=== PATIENT | female | born 1985 | race Caucasian/White ===

== ENCOUNTER → 2016-10-27 | Outpatient (CLI) | payer OTHER ==
[~2016-10-27] MED LIST: IBUP-1114 PO; OXYC1TAB23 PO
[2016-10-27 13:59] LABS: FREE T4 0.88 NG/DL (0.76-1.46)
== END ==
LOC: M SMT 10:01
PROVIDERS: ATTEND Family Medicine
DX: Z13.29 Encounter for screening for other suspected endocrine disorder (principal)

== ENCOUNTER 2016-11-23 22:57 | Emergency (ER) | payer OTHER ==
[2016-11-24] MEDS ORDERED: MORPHINE 4 MG/ML 1ML SYRINGE As Ordered ONE (03:01)
[2016-11-24] MEDS ORDERED: ONDANSETRON 4MG/2ML VIAL (J2405) As Ordered ONE (03:01)
[2016-11-24 03:39] LABS: BASO % 0.4 % (0.0-1.0); EOS # 0.2 K/mm3 (0.0-0.50); EOS % 1.5 % (0.0-3.0); LARGE UNSTAINED CELL # 0.3 K/mm3 (0.0-0.4); LARGE UNSTAINED CELL % 3.1 % (0.0-4.0); LYMPH # 2.6 K/mm3 (1.5-4.5); LYMPH % 23.6 % (24.0-44.0); MEAN CORPUSCULAR HEMOGLOBIN 29.8 pg (27.0-33.0); MEAN CORPUSCULAR HGB CONC 33.5 g/dl (32.0-36.5); MEAN CORPUSCULAR VOLUME 88.8 fl (80.0-96.0); MONO # 0.5 K/mm3 (0.0-0.8); MONO % 4.4 % (0.0-5.0); NEUTROPHILS # 7.3 K/mm3 (1.8-7.7); NEUTROPHILS % 66.9 % (36.0-66.0); PLATELET COUNT, AUTOMATED 435 k/mm3 (150-450); RED CELL DISTRIBUTION WIDTH 12.5 % (11.5-14.5); WHITE BLOOD COUNT 10.8 K/mm3 (4.0-10.0)
[2016-11-24 04:05] LABS: ALBUMIN 4.2 GM/DL (3.2-5.2); ALBUMIN/GLOBULIN RATIO 1.11 (1.00-1.93); ALKALINE PHOSPHATASE 113 U/L (45-117); ALT/SGPT 49 U/L (12-78); AMYLASE 55 U/L (25-115); ANION GAP 10 MEQ/L (8-16); AST/SGOT 24 U/L (15-37); BILIRUBIN,DIRECT < 0.1 MG/DL (0.0-0.2); BILIRUBIN,TOTAL 0.5 MG/DL (0.2-1.0); BLOOD UREA NITROGEN 20 MG/DL (7-18); CALCIUM LEVEL 8.9 MG/DL (8.5-10.1); CARBON DIOXIDE LEVEL 27 MEQ/L (21-32); CHLORIDE LEVEL 105 MEQ/L (98-107); CREATININE FOR GFR 0.62 MG/DL (0.55-1.02); GLOMERULAR FILTRATION RATE > 60.0 (>60); GLUCOSE, FASTING 97 MG/DL (70-105); POTASSIUM SERUM 3.9 MEQ/L (3.5-5.1); SODIUM LEVEL 142 MEQ/L (136-145)
--- NOTE | 2016-11-24 05:10 | REPUSA ---
CLINICAL HISTORY: Abdominal pain. TECHNIQUE: Multiple axial, sagittal and coronal CT images were obtained through the abdomen and pelvi s without administration of oral or IV contrast material. COMMENTS: The liver is mildly enlarged without mass or defect. There is no intra or extrahepatic biliary ductal dilatation. The spleen is normal. The gallbladder is surgically absent. The pancreas is of normal co ntour and attenuation characteristics. There is no evidence of adrenal mass. The kidneys are normal in size, shape and configuration. No renal or ureteral calculi are identified. There is no hydroureter or hydronephrosis. There is no evidence for appendicitis. There is no bowel wall thickening. No evidence for small or la rge bowel obstruction. There is no evidence of abdominal ascites or lymphadenopathy. There is no evidence of intrinsic or extrinsic bladder mass. There is no pelvic ascites or lymphadeno alyce. The bowels. Mildly thickened bladder. Images of the lung bases show no evidence of pleural or parenchymal mass. There are no pleural effusi ons. The bony structures are free of lytic or blastic lesions. Multilevel degenerative changes are seen in volving the thoracolumbar spine. Scattered calcifications are seen involving the aorta and major branches compatible with atherosclero sis. IMPRESSION: Mildly thickened bladder. Underdistention versus mild cystitis. Fluid-filled bowels. Probably mild ileus. No urolithiasis or hydronephrosis. Thank you for your kind referral of this patient.
[2016-11-24] MEDS ORDERED: KETOROLAC 30 MG/ML VIAL (J1885) As Ordered ONE (05:56)
--- NOTE | 2016-11-24 06:45 | EDDOCDS ---
Nurse's Notes [facility] Name: Carol Calderon Age: 31 yrs Sex: Female : 1985 Arrival Date: 11/23/2016 Time: 22:57 Bed 15 Private MD: Lauren Diagnosis: Urinary tract infection, site not specified Presentation: 11/23 23:15 Presenting complaint: Patient states: Abdominal pain around 7pm and gradually getting jo3 worse. Epigastric pain which radiates to RUQ. Pt does not have gall bladder. N/V also noted. Risk factors: the patient reports no vaginal bleeding. Adult Sepsis Screening: The patient does not have new or worsening altered mentation. Patient's respiratory rate is less than 22. Systolic blood pressure is greater than 100. Patient has a qSOFA score of 0- Negative Sepsis Screen. Suicide/Homicide risk assessment- the patient denies having any suicidal and/or homicidal ideations and does not present with any other emotional, behavioral or mental health complaints. Status: The patient is a dependent. Transition of care: patient was not received from another setting of care. 23:15 Acuity: DOREEN Level 3 jo3 23:15 Method Of Arrival: Walkin/Carried/Asstd jo3 Triage Assessment: 23:20 General: Appears uncomfortable, Behavior is appropriate for age, cooperative. Pain: jo3 Pain currently is 9 out of 10 on a pain scale. HIV screening NA for this visit Offered previously. The patient is triaged at the bedside. See Assessment in Nurses Notes section of ED record. Neurological: Level of Consciousness is awake, alert, Oriented to person, place, time. Respiratory: No deficits noted. Airway is patent Respiratory effort is even, unlabored. Derm: Skin is pink, warm & dry. ROLFER: 23:21 LMP N/A - jo3 Historical: - Allergies: Amoxicillin; Azithromycin; - Home Meds: 1. Ranitidine Oral 2. Vitamin D3 oral oral 3. nexplanon placed this morning 4. 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 No barriers to communication noted, The patient speaks fluent French, Speaks appropriately for age. - Family history: Not pertinent. - : The pt / caregiver states he / she is not on anticoagulants. Home medication list is obtained from the patient. - Exposure Risk Screening:: None identified. Screenin/17 03:42 Screening information is obtained from the patient. Fall risk: No risks identified. cf2 Assistance ADL's: requires no assistance with activities of daily living. Abuse/DV Screen: The patient / caregiver reports he/she is: not in a situation that causes fear, pain or injury. Nutritional screening: No deficits noted. Advance Directives: Further advance directive information is declined. home support is adequate. Assessment: 01:10 Adult Sepsis Screening: The patient does not have new or worsening altered mentation. lf1 Patient's respiratory rate is less than 22. Systolic blood pressure is greater than 100. Patient has a qSOFA score of 0- Negative Sepsis Screen. General: Appears uncomfortable, Behavior is cooperative. Pain: Location: suprapubic area and right lower quadrant Pain currently is 8 out of 10 on a pain scale. Neurological: Level of Consciousness is awake, alert. Respiratory: Respiratory effort is even, unlabored. GI: Reports lower abdominal pain, nausea. Derm: Skin is normal. 03:42 GI: Abdomen is flat, non- distended Bowel sounds present X 4 quads. Abd is soft Abd is cf2 tender to palpation in epigastric area and right upper quadrant. 06:18 Reassessment: Patient appears in no apparent distress at this time. Patient denies pain cf2 at this time. Patient states feeling better. Patient states symptoms have improved. Vital Signs: 11/23 23:23 BP 152 / 95; Pulse 123; Resp 18; Temp 97.9(TE); Pulse Ox 98% on R/A; jo3 11/24 01:10 BP 139 / 87; Pulse 120; Resp 20; Temp 98.0(TE); Pulse Ox 99% on R/A; Pain 8/10; lf1 06:41 BP 132 / 78; Pulse 106; Resp 16; Temp 98.0; Pulse Ox 99% on R/A; Pain 0/10; cf2 Vitals: 11/23 23:20 Log In Time: November 22, 2016 at 22:57. jo3 ED Course: 22:59 Patient visited by Bart Beasley RegRadha pm4 22:59 Lauren is Private Physician. pm4 22:59 Patient moved to Waiting pm4 23:15 Patient moved to Pre RCE jo3 23:17 Triage Initiated jo3 23:23 Patient visited by Romi Rea RN. jo3 02 01:08 Patient moved to Waiting sls1 01:11 Patient visited by Gina Mckoy,PUNEET. lf1 02:31 Patient moved to 15 lf1 02:37 Stefan Hernandez DO is Attending Physician. cs11 02:37 Patient visited by Stefan Hernandez DO. cs11 02:37 Patient visited by Stefan Hernandez DO. cs11 02:44 Tamar Mcdaniel,PUNEET is Primary Nurse. cf2 02:44 Patient visited by Tamar Mcdaniel RN. cf2 02:57 [facility] Payment Agreement was scanned into [employer] and attached to record. hs2 02:59 Patient visited by Tamar Mcdaniel RN. cf2 03:36 Patient visited by Tamar Mcdaniel RN. cf2 03:37 CBC with Diff Sent. cf2 03:37 MED Profile Sent. cf2 03:37 Liver Profile Sent. cf2 03:37 Amylase Sent. cf2 03:37 Lipase Sent. cf2 03:37 Urinalysis Sent. cf2 03:37 Urine Culture Sent. cf2 03:42 Patient visited by Tamar Mcdaniel RN. cf2 03:42 The patient / caregiver is instructed regarding the plan of care and ED course. Patient cf2 has correct armband on for positive identification. Placed in gown. Bed in low position. Call light in reach. Side rails up X 1. Side rails up X2. Property :Personal belongings accompany Pt. Door closed. Noise minimized. Visitors limited. Lights dimmed. Moved to private room. Verbal reassurance given. Warm blanket given. Pillow given. Head of bed elevated. Diet: Patient is NPO. 03:42 Inserted saline lock: 20 gauge in right antecubital area and blood collected. The cf2 patient tolerated the procedure well. No procedures done that require assistance. 05:05 Patient visited by Tamar Mcdaniel RN. cf2 05:22 Patient visited by Tamar Mcdaniel RN. cf2 05:31 CT ABD & PELVIS: No Contrast Returned. EDMS 05:41 Patient visited by Tamar Mcdaniel RN. cf2 05:50 Lauren is Referral Physician. cs11 06:18 Patient visited by Tamar Mcdaniel RN. cf2 06:41 Patient visited by Tamar Mcdaniel RN. cf2 06:41 Discontinued lock. cf2 Administered Medications: Discontinued: NS 0.9% 1000 ml IV at bolus once Discontinued: Ciprofloxacin 400 mg IVPB at 200 mL/hr once over 60 mins 03:10 Drug: NS 0.9% 1000 ml [sodium chloride 0.9 % intravenous solution] Route: IV; Rate: cf2 bolus; Site: left antecubital; 03:10 Drug: morphine 4 mg [morphine 4 mg/mL intravenous cartridge (1 mL)] Route: IVP; Site: cf2 left antecubital; 05:42 Follow up: Response: Pain is decreased cf2 04:20 Drug: Ciprofloxacin 400 mg [ciprofloxacin 400 mg/200 mL in 5 % dextrose intravenous cf2 piggyback] Route: IVPB; Rate: 200 mL/hr; Infused Over: 60 mins; Site: left antecubital; 06:43 Follow up: Response: No significant change. cf2 05:45 Drug: ketorolac 30 mg [ketorolac 30 mg/mL (1 mL) injection solution (1 mL)] Route: IVP; cf2 Site: left antecubital; 06:17 Follow up: Response: No significant change. cf2 06:43 Follow up: Response: Pain is decreased cf2 Order Results: Lab Order: CBC with Diff; SPEC'M 11/24/16 03:32 Test: HEMATOCRIT; Value: 47.6; Range: 36.0-47.0; Abnormal: Above high normal; Units: %; Status: F Test: MEAN CORPUSCULAR VOLUME; Value: 88.8; Range: 80.0-96.0; Units: fl; Status: F Test: MEAN CORPUSCULAR HEMOGLOBIN; Value: 29.8; Range: 27.0-33.0; Units: pg; Status: F Test: MEAN CORPUSCULAR HGB CONC; Value: 33.5; Range: 32.0-36.5; Units: g/dl; Status: F Test: RED CELL DISTRIBUTION WIDTH; Value: 12.5; Range: 11.5-14.5; Units: %; Status: F Test: PLATELET COUNT, AUTOMATED; Value: 435; Range: 150-450; Units: k/mm3; Status: F Test: NEUTROPHILS %; Value: 66.9; Range: 36.0-66.0; Abnormal: Above high normal; Units: %; Status: F Test: LYMPH %; Value: 23.6; Range: 24.0-44.0; Abnormal: Below low normal; Units: %; Status: F Test: MONO %; Value: 4.4; Range: 0.0-5.0; Units: %; Status: F Test: EOS %; Value: 1.5; Range: 0.0-3.0; Units: %; Status: F Test: BASO %; Value: 0.4; Range: 0.0-1.0; Units: %; Status: F Test: LARGE UNSTAINED CELL %; Value: 3.1; Range: 0.0-4.0; Units: %; Status: F Test: NEUTROPHILS #; Value: 7.3; Range: 1.8-7.7; Units: K/mm3; Status: F Test: LYMPH #; Value: 2.6; Range: 1.5-4.5; Units: K/mm3; Status: F Test: MONO #; Value: 0.5; Range: 0.0-0.8; Units: K/mm3; Status: F Test: EOS #; Value: 0.2; Range: 0.0-0.50; Units: K/mm3; Status: F Test: BASO #; Value: 0.0; Range: 0.0-0.2; Units: K/mm3; Status: F Test: LARGE UNSTAINED CELL #; Value: 0.3; Range: 0.0-0.4; Units: K/mm3; Status: F Test: WHITE BLOOD COUNT; Value: 10.8; Range: 4.0-10.0; Abnormal: Above high normal; Units: K/mm3; Status: F Test: RED BLOOD COUNT; Value: 5.36; Range: 4.00-5.40; Units: M/mm3; Status: F Test: HEMOGLOBIN; Value: 16.0; Range: 12.0-16.0; Units: g/dl; Status: F Lab Order: MED Profile; SPEC'M 11/24/16 03:32 Test: GLUCOSE, FASTING; Value: 97; Range: 70-105; Units: MG/DL; Status: F Test: BLOOD UREA NITROGEN; Value: 20; Range: 7-18; Abnormal: Above high normal; Units: MG/DL; Status: F Test: CREATININE FOR GFR; Value: 0.62; Range: 0.55-1.02; Units: MG/DL; Status: F Test: GLOMERULAR FILTRATION RATE; Value: > 60.0; Range: >60; Status: F Test: SODIUM LEVEL; Value: 142; Range: 136-145; Units: MEQ/L; Status: F Test: POTASSIUM SERUM; Value: 3.9; Range: 3.5-5.1; Units: MEQ/L; Status: F Test: CHLORIDE LEVEL; Value: 105; Range: 98-107; Units: MEQ/L; Status: F Test: CARBON DIOXIDE LEVEL; Value: 27; Range: 21-32; Units: MEQ/L; Status: F Test: ANION GAP; Value: 10; Range: 8-16; Units: MEQ/L; Status: F Test: CALCIUM LEVEL; Value: 8.9; Range: 8.5-10.1; Units: MG/DL; Status: F Test Note: ; Units are mL/min/1.73 m2 Chronic Kidney Disease Staging per NKF: Stage I & II GFR >=60 Normal to Mildly Decreased Stage III GFR 30-59 Moderately Decreased Stage IV GFR 15-29 Severely Decreased Stage V GFR <15 Very Little GFR Left ESRD GFR <15 on AGRICULTURAL EXTENSION SPECIALIST Lab Order: Liver Profile; SPEC'M 11/24/16 03:32 Test: AST/SGOT; Value: 24; Range: 15-37; Units: U/L; Status: F Test: ALT/SGPT; Value: 49; Range: 12-78; Units: U/L; Status: F Test: ALKALINE PHOSPHATASE; Value: 113; Range: 45-117; Units: U/L; Status: F Test: BILIRUBIN,TOTAL; Value: 0.5; Range: 0.2-1.0; Units: MG/DL; Status: F Test: BILIRUBIN,DIRECT; Value: < 0.1; Range: 0.0-0.2; Units: MG/DL; Status: F Test: TOTAL PROTEIN; Value: 8.0; Range: 6.4-8.2; Units: GM/DL; Status: F Test: ALBUMIN; Value: 4.2; Range: 3.2-5.2; Units: GM/DL; Status: F Test: ALBUMIN/GLOBULIN RATIO; Value: 1.11; Range: 1.00-1.93; Status: F Lab Order: Amylase; [facility] 11/24/16 03:32 Test: AMYLASE; Value: 55; Range: 25-115; Units: U/L; Status: F Lab Order: Lipase; [facility] 11/24/16 03:32 Test: LIPASE; Value: 122; Range: 73-393; Units: U/L; Status: F Lab Order: Urinalysis; [facility] 11/24/16 03:32 Test: APPEARANCE, URINE; Value: CLOUDY; Range: CLEAR; Abnormal: Above high normal; Status: F Test: COLOR, URINE; Value: YELLOW; Range: YELLOW; Status: F Test: PH,URINE; Value: 5.0; Range: 5.0-9.0; Units: UNITS; Status: F Test: SPECIFIC GRAVITY URINE AUTO; Value: 1.030; Range: 1.002-1.035; Status: F Test: PROTEIN, URINE AUTO; Value: NEGATIVE; Range: NEGATIVE; Units: mg/dL; Status: F Test: GLUCOSE, URINE (UA) AUTO; Value: NEGATIVE; Range: NEGATIVE; Units: mg/dL; Status: F Test: KETONE, URINE AUTO; Value: TRACE; Range: NEGATIVE; Abnormal: Above high normal; Units: mg/dL; Status: F Test: UROBILINOGEN, URINE AUTO; Value: 0.2; Range: 0.0-2.0; Units: mg/dL; Status: F Test: BILIRUBIN, URINE AUTO; Value: NEGATIVE; Range: NEGATIVE; Status: F Test: NITRITE, URINE AUTO; Value: NEGATIVE; Range: NEGATIVE; Status: F Test: LEUKOCYTE ESTERASE, URINE AUTO; Value: 2+; Range: NEGATIVE; Abnormal: Above high normal; Status: F Test: BLOOD, URINE BLOOD; Value: NEGATIVE; Range: NEGATIVE; Status: F Test: WBC, URINE AUTO; Value: 15; Range: 0-3; Abnormal: Above high normal; Units: /HPF; Status: F Test: RBC, URINE AUTO; Value: 5; Range: 0-3; Abnormal: Above high normal; Units: /HPF; Status: F Test: BACTERIA, URINE AUTO; Value: 1+; Range: NEGATIVE; Abnormal: Above high normal; Status: F Test: SQUAMOUS EPITHELIAL CELL UR AU; Value: 25; Range: 0-6; Units: /HPF; Status: F Test: MUCUS, URINE; Value: SMALL; Range: NEGATIVE; Status: F Test: HYALINE CAST, URINE AUTO; Value: 0; Range: 0-1; Units: /LPF; Status: F Radiology Order: CT ABD & PELVIS: No Contrast Test: CT ABD & PELVIS: No Contrast REASON FOR EXAMINATION: Renal colic; ; CLINICAL HISTORY: Abdominal pain.; TECHNIQUE: Multiple axial, sagittal and coronal CT images were obtained through the abdomen and pelvi; s without administration of oral or IV contrast material.; COMMENTS:; The liver is mildly enlarged without mass or defect. There is no intra or extrahepatic biliary ductal; dilatation. The spleen is normal. The gallbladder is surgically absent. The pancreas is of normal co; ntour and attenuation characteristics. There is no evidence of adrenal mass.; The kidneys are normal in size, shape and configuration. No renal or ureteral calculi are identified.; There is no hydroureter or hydronephrosis.; There is no evidence for appendicitis. There is no bowel wall thickening. No evidence for small or la; rge bowel obstruction. There is no evidence of abdominal ascites or lymphadenopathy.; There is no evidence of intrinsic or extrinsic bladder mass. There is no pelvic ascites or lymphadeno; alyce. The bowels.; Mildly thickened bladder.; Images of the lung bases show no evidence of pleural or parenchymal mass. There are no pleural effusi; ons.; The bony structures are free of lytic or blastic lesions. Multilevel degenerative changes are seen in; volving the thoracolumbar spine.; Scattered calcifications are seen involving the aorta and major branches compatible with atherosclero; sis.; IMPRESSION:; Mildly thickened bladder. Underdistention versus mild cystitis.; Fluid-filled bowels. Probably mild ileus.; No urolithiasis or hydronephrosis.; Thank you for your kind referral of this patient.; ; Outcome: 05:51 Discharge ordered by Provider. cs11 06:18 CT Study completed. cf2 06:41 Discharge Assessment: Patient awake, alert and oriented x 3. No cognitive and/or cf2 functional deficits noted. Patient verbalized understanding of disposition instructions. Patient awake and alert. Oriented to person, place and time. patient administered narcotics - yes. Pt provided with safe discharge. The following High Risk Discharge criteria are identified: None. Discharged to home ambulatory, with significant other. Condition: good Condition: stable Condition: improved. Discharge instructions given to patient, Instructed on discharge instructions, follow up and referral plans. medication usage, Demonstrated understanding of instructions, medications, Prescriptions given X 1. 06:44 Patient left the ED. cf2 Signatures: Dispatcher [employer] EDMS Romi ReaRN RN miguel angel3 Gina MckoyRN RN lf1 Mary Bains RN RN sls1 Stefan Hernandez, DO DO cs11 Tamia Epps, Reg Reg hs2 Tamar Mcdaniel RN RN cf2 Bart Beasley, Reg Reg pm4 MTDD
--- NOTE | 2016-11-24 06:45 | EDDOCDS ---
Physician Documentation [facility] Name: Carol Calderon Age: 31 yrs Sex: Female : 1985 Arrival Date: 11/23/2016 Time: 22:57 Bed 15 Private MD: Lauren Disposition: 11/24/16 05:51 Discharged to Home/Self Care. Impression: Urinary tract infection, site not specified. - Condition is Stable. - Prescriptions for Cipro 500 mg Oral Tablet - take 1 tablet by ORAL route every 12 hours; 10 tablet. - Medication Reconciliation, Local Pharmacy Hours form. - Follow up: Lauren; When: Call to arrange an appointment; Reason: Recheck today's complaints. - Problem is new. - Symptoms have improved. Historical: - Allergies: Amoxicillin; Azithromycin; - Home Meds: 1. Ranitidine Oral 2. Vitamin D3 oral oral 3. nexplanon placed this morning 4. 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 No barriers to communication noted, The patient speaks fluent Chinese, Speaks appropriately for age. - Family history: Not pertinent. - : The pt / caregiver states he / she is not on anticoagulants. Home medication list is obtained from the patient. - Exposure Risk Screening:: None identified. 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 cs11 02:57 NS 0.9% 1000 ml IV at bolus once ordered. cs11 02:57 morphine 4 mg IVP once ordered. cs11 02:57 [facility] Payment Agreement was scanned into [employer] and attached to record. hs2 02:57 Financial registration complete. hs2 02:58 CBC with Diff Ordered. EDMS 02:58 MED Profile Ordered. EDMS 02:58 Liver Profile Ordered. EDMS 02:58 Amylase Ordered. EDMS 02:58 Lipase Ordered. EDMS 02:58 Urinalysis Ordered. EDMS 02:58 Urine Culture Ordered. EDMS 04:01 CBC with Diff Reviewed. cs11 04:01 Urinalysis Reviewed. cs11 04:03 Ciprofloxacin 400 mg IVPB at 200 mL/hr once over 60 mins ordered. cs11 04:04 CT ABD & PELVIS: No Contrast Ordered. EDMS 04:57 MED Profile Reviewed. cs11 04:57 Liver Profile Reviewed. cs11 04:57 Amylase Reviewed. cs11 04:57 Lipase Reviewed. cs11 05:41 ketorolac 30 mg IVP once ordered. cs11 05:45 CT ABD & PELVIS: No Contrast Reviewed. cs11 Administered Medications: Discontinued: NS 0.9% 1000 ml IV at bolus once Discontinued: Ciprofloxacin 400 mg IVPB at 200 mL/hr once over 60 mins 03:10 Drug: NS 0.9% 1000 ml [sodium chloride 0.9 % intravenous solution] Route: IV; Rate: cf2 bolus; Site: left antecubital; 03:10 Drug: morphine 4 mg [morphine 4 mg/mL intravenous cartridge (1 mL)] Route: IVP; Site: cf2 left antecubital; 05:42 Follow up: Response: Pain is decreased cf2 04:20 Drug: Ciprofloxacin 400 mg [ciprofloxacin 400 mg/200 mL in 5 % dextrose intravenous cf2 piggyback] Route: IVPB; Rate: 200 mL/hr; Infused Over: 60 mins; Site: left antecubital; 06:43 Follow up: Response: No significant change. cf2 05:45 Drug: ketorolac 30 mg [ketorolac 30 mg/mL (1 mL) injection solution (1 mL)] Route: IVP; cf2 Site: left antecubital; 06:17 Follow up: Response: No significant change. cf2 06:43 Follow up: Response: Pain is decreased cf2 Signatures: Dispatcher [employer] EDMS Romi Rea RN RN Stefan Martinez DO DO cs11 Tamia Epps, Reg Reg hs2 Tamar Mcdaniel,RN RN cf2 The chart was reviewed and I authenticate all verbal orders and agree with the evaluation and treatment provided.Attachments: 02:57 [facility] Payment Agreement hs2 MTDD
--- NOTE | 2016-11-26 07:45 | EDDOCDS ---
Physician Documentation [facility] Name: Carol Calderon Age: 31 yrs Sex: Female : 1985 Arrival Date: 11/23/2016 Time: 22:57 Bed 15 Private MD: Lauren Disposition: 11/24/16 05:51 Discharged to Home/Self Care. Impression: Urinary tract infection, site not specified. - Condition is Stable. - Prescriptions for Cipro 500 mg Oral Tablet - take 1 tablet by ORAL route every 12 hours; 10 tablet. - Medication Reconciliation, Local Pharmacy Hours form. - Follow up: Lauren; When: Call to arrange an appointment; Reason: Recheck today's complaints. - Problem is new. - Symptoms have improved. Historical: - Allergies: Amoxicillin; Azithromycin; - Home Meds: 1. Ranitidine Oral 2. Vitamin D3 oral oral 3. nexplanon placed this morning 4. 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 No barriers to communication noted, The patient speaks fluent Khmer, Speaks appropriately for age. - Family history: Not pertinent. - : The pt / caregiver states he / she is not on anticoagulants. Home medication list is obtained from the patient. - Exposure Risk Screening:: None identified. 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 cs11 02:57 NS 0.9% 1000 ml IV at bolus once ordered. cs11 02:57 morphine 4 mg IVP once ordered. cs11 02:57 [facility] Payment Agreement was scanned into [employer] and attached to record. hs2 02:57 Financial registration complete. hs2 02:58 CBC with Diff Ordered. EDMS 02:58 MED Profile Ordered. EDMS 02:58 Liver Profile Ordered. EDMS 02:58 Amylase Ordered. EDMS 02:58 Lipase Ordered. EDMS 02:58 Urinalysis Ordered. EDMS 02:58 Urine Culture Ordered. EDMS 04:01 CBC with Diff Reviewed. cs11 04:01 Urinalysis Reviewed. cs11 04:03 Ciprofloxacin 400 mg IVPB at 200 mL/hr once over 60 mins ordered. cs11 04:04 CT ABD & PELVIS: No Contrast Ordered. EDMS 04:57 MED Profile Reviewed. cs11 04:57 Liver Profile Reviewed. cs11 04:57 Amylase Reviewed. cs11 04:57 Lipase Reviewed. cs11 05:41 ketorolac 30 mg IVP once ordered. cs11 05:45 CT ABD & PELVIS: No Contrast Reviewed. cs11 10:24 T-Sheet-- Draft Copy was scanned into [employer] and attached to record. gb 11/25 08:54 Radiology Report was scanned into [employer] and attached to record. gb Administered Medications: Discontinued: NS 0.9% 1000 ml IV at bolus once Discontinued: Ciprofloxacin 400 mg IVPB at 200 mL/hr once over 60 mins 11/24 03:10 Drug: NS 0.9% 1000 ml [sodium chloride 0.9 % intravenous solution] Route: IV; Rate: cf2 bolus; Site: left antecubital; 03:10 Drug: morphine 4 mg [morphine 4 mg/mL intravenous cartridge (1 mL)] Route: IVP; Site: cf2 left antecubital; 05:42 Follow up: Response: Pain is decreased cf2 04:20 Drug: Ciprofloxacin 400 mg [ciprofloxacin 400 mg/200 mL in 5 % dextrose intravenous cf2 piggyback] Route: IVPB; Rate: 200 mL/hr; Infused Over: 60 mins; Site: left antecubital; 06:43 Follow up: Response: No significant change. cf2 05:45 Drug: ketorolac 30 mg [ketorolac 30 mg/mL (1 mL) injection solution (1 mL)] Route: IVP; cf2 Site: left antecubital; 06:17 Follow up: Response: No significant change. cf2 06:43 Follow up: Response: Pain is decreased cf2 Signatures: Dispatcher [employer] Mine Carranza, Reg Reg gb Romi Rea,RN RN jo3 Stefan Hernandez, DO cs11 Tamia Epps, Reg Reg hs2 Tamar Mcdaniel RN RN cf2 The chart was reviewed and I authenticate all verbal orders and agree with the evaluation and treatment provided.Attachments: 02:57 [facility] Payment Agreement hs2 10:24 T-Sheet-- Draft Copy gb Chart Complete MTDD
--- NOTE | 2016-11-26 07:45 | EDDOCDS ---
Nurse's Notes [facility] Name: Carol Calderon Age: 31 yrs Sex: Female : 1985 Arrival Date: 11/23/2016 Time: 22:57 Bed 15 Private MD: Lauren Diagnosis: Urinary tract infection, site not specified Presentation: 11/23 23:15 Presenting complaint: Patient states: Abdominal pain around 7pm and gradually getting jo3 worse. Epigastric pain which radiates to RUQ. Pt does not have gall bladder. N/V also noted. Risk factors: the patient reports no vaginal bleeding. Adult Sepsis Screening: The patient does not have new or worsening altered mentation. Patient's respiratory rate is less than 22. Systolic blood pressure is greater than 100. Patient has a qSOFA score of 0- Negative Sepsis Screen. Suicide/Homicide risk assessment- the patient denies having any suicidal and/or homicidal ideations and does not present with any other emotional, behavioral or mental health complaints. Status: The patient is a dependent. Transition of care: patient was not received from another setting of care. 23:15 Acuity: DOREEN Level 3 jo3 23:15 Method Of Arrival: Walkin/Carried/Asstd jo3 Triage Assessment: 23:20 General: Appears uncomfortable, Behavior is appropriate for age, cooperative. Pain: jo3 Pain currently is 9 out of 10 on a pain scale. HIV screening NA for this visit Offered previously. The patient is triaged at the bedside. See Assessment in Nurses Notes section of ED record. Neurological: Level of Consciousness is awake, alert, Oriented to person, place, time. Respiratory: No deficits noted. Airway is patent Respiratory effort is even, unlabored. Derm: Skin is pink, warm & dry. 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 Ranitidine Oral 2. Vitamin D3 oral oral 3. nexplanon placed this morning 4. 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 No barriers to communication noted, The patient speaks fluent Swedish, Speaks appropriately for age. - Family history: Not pertinent. - : The pt / caregiver states he / she is not on anticoagulants. Home medication list is obtained from the patient. - Exposure Risk Screening:: None identified. Screenin/17 03:42 Screening information is obtained from the patient. Fall risk: No risks identified. cf2 Assistance ADL's: requires no assistance with activities of daily living. Abuse/DV Screen: The patient / caregiver reports he/she is: not in a situation that causes fear, pain or injury. Nutritional screening: No deficits noted. Advance Directives: Further advance directive information is declined. home support is adequate. Assessment: 01:10 Adult Sepsis Screening: The patient does not have new or worsening altered mentation. lf1 Patient's respiratory rate is less than 22. Systolic blood pressure is greater than 100. Patient has a qSOFA score of 0- Negative Sepsis Screen. General: Appears uncomfortable, Behavior is cooperative. Pain: Location: suprapubic area and right lower quadrant Pain currently is 8 out of 10 on a pain scale. Neurological: Level of Consciousness is awake, alert. Respiratory: Respiratory effort is even, unlabored. GI: Reports lower abdominal pain, nausea. Derm: Skin is normal. 03:42 GI: Abdomen is flat, non- distended Bowel sounds present X 4 quads. Abd is soft Abd is cf2 tender to palpation in epigastric area and right upper quadrant. 06:18 Reassessment: Patient appears in no apparent distress at this time. Patient denies pain cf2 at this time. Patient states feeling better. Patient states symptoms have improved. Vital Signs: 11/23 23:23 BP 152 / 95; Pulse 123; Resp 18; Temp 97.9(TE); Pulse Ox 98% on R/A; jo3 11/24 01:10 BP 139 / 87; Pulse 120; Resp 20; Temp 98.0(TE); Pulse Ox 99% on R/A; Pain 8/10; lf1 06:41 BP 132 / 78; Pulse 106; Resp 16; Temp 98.0; Pulse Ox 99% on R/A; Pain 0/10; cf2 Vitals: 11/23 23:20 Log In Time: November 22, 2016 at 22:57. jo3 ED Course: 22:59 Patient visited by Bart Beasley RegRadha pm4 22:59 Lauren is Private Physician. pm4 22:59 Patient moved to Waiting pm4 23:15 Patient moved to Pre RCE jo3 23:17 Triage Initiated jo3 23:23 Patient visited by Romi Rea RN. jo3 02 01:08 Patient moved to Waiting sls1 01:11 Patient visited by Gina Mckoy,PUNEET. lf1 02:31 Patient moved to 15 lf1 02:37 Stefan Hernandez DO is Attending Physician. cs11 02:37 Patient visited by Stefan Hernandez DO. cs11 02:37 Patient visited by Stefan Hernandez DO. cs11 02:44 Tamar Mcdaniel,PUNEET is Primary Nurse. cf2 02:44 Patient visited by Tamar Mcdaniel RN. cf2 02:57 [facility] Payment Agreement was scanned into [employer] and attached to record. hs2 02:59 Patient visited by Tamar Mcdaniel RN. cf2 03:36 Patient visited by Tamar Mcdaniel RN. cf2 03:37 CBC with Diff Sent. cf2 03:37 MED Profile Sent. cf2 03:37 Liver Profile Sent. cf2 03:37 Amylase Sent. cf2 03:37 Lipase Sent. cf2 03:37 Urinalysis Sent. cf2 03:37 Urine Culture Sent. cf2 03:42 Patient visited by Tamar Mcdaniel RN. cf2 03:42 The patient / caregiver is instructed regarding the plan of care and ED course. Patient cf2 has correct armband on for positive identification. Placed in gown. Bed in low position. Call light in reach. Side rails up X 1. Side rails up X2. Property :Personal belongings accompany Pt. Door closed. Noise minimized. Visitors limited. Lights dimmed. Moved to private room. Verbal reassurance given. Warm blanket given. Pillow given. Head of bed elevated. Diet: Patient is NPO. 03:42 Inserted saline lock: 20 gauge in right antecubital area and blood collected. The cf2 patient tolerated the procedure well. No procedures done that require assistance. 05:05 Patient visited by Tamar Mcdaniel RN. cf2 05:22 Patient visited by Tamar Mcdaniel RN. cf2 05:31 CT ABD & PELVIS: No Contrast Returned. EDMS 05:41 Patient visited by Tamar Mcdaniel,PUNEET. cf2 05:50 Lauren is Referral Physician. cs11 06:18 Patient visited by Tamar Mcdaniel,PUNEET. cf2 06:41 Patient visited by Tamar Mcdaniel,PUNEET. cf2 06:41 Discontinued lock. cf2 10:24 T-Sheet-- Draft Copy was scanned into [employer] and attached to record. gb 11/25 08:54 Radiology Report was scanned into [employer] and attached to record. gb Administered Medications: Discontinued: NS 0.9% 1000 ml IV at bolus once Discontinued: Ciprofloxacin 400 mg IVPB at 200 mL/hr once over 60 mins 11/24 03:10 Drug: NS 0.9% 1000 ml [sodium chloride 0.9 % intravenous solution] Route: IV; Rate: cf2 bolus; Site: left antecubital; 03:10 Drug: morphine 4 mg [morphine 4 mg/mL intravenous cartridge (1 mL)] Route: IVP; Site: cf2 left antecubital; 05:42 Follow up: Response: Pain is decreased cf2 04:20 Drug: Ciprofloxacin 400 mg [ciprofloxacin 400 mg/200 mL in 5 % dextrose intravenous cf2 piggyback] Route: IVPB; Rate: 200 mL/hr; Infused Over: 60 mins; Site: left antecubital; 06:43 Follow up: Response: No significant change. cf2 05:45 Drug: ketorolac 30 mg [ketorolac 30 mg/mL (1 mL) injection solution (1 mL)] Route: IVP; cf2 Site: left antecubital; 06:17 Follow up: Response: No significant change. cf2 06:43 Follow up: Response: Pain is decreased cf2 Order Results: Lab Order: CBC with Diff; SPEC'M 11/24/16 03:32 Test: HEMATOCRIT; Value: 47.6; Range: 36.0-47.0; Abnormal: Above high normal; Units: %; Status: F Test: MEAN CORPUSCULAR VOLUME; Value: 88.8; Range: 80.0-96.0; Units: fl; Status: F Test: MEAN CORPUSCULAR HEMOGLOBIN; Value: 29.8; Range: 27.0-33.0; Units: pg; Status: F Test: MEAN CORPUSCULAR HGB CONC; Value: 33.5; Range: 32.0-36.5; Units: g/dl; Status: F Test: RED CELL DISTRIBUTION WIDTH; Value: 12.5; Range: 11.5-14.5; Units: %; Status: F Test: PLATELET COUNT, AUTOMATED; Value: 435; Range: 150-450; Units: k/mm3; Status: F Test: NEUTROPHILS %; Value: 66.9; Range: 36.0-66.0; Abnormal: Above high normal; Units: %; Status: F Test: LYMPH %; Value: 23.6; Range: 24.0-44.0; Abnormal: Below low normal; Units: %; Status: F Test: MONO %; Value: 4.4; Range: 0.0-5.0; Units: %; Status: F Test: EOS %; Value: 1.5; Range: 0.0-3.0; Units: %; Status: F Test: BASO %; Value: 0.4; Range: 0.0-1.0; Units: %; Status: F Test: LARGE UNSTAINED CELL %; Value: 3.1; Range: 0.0-4.0; Units: %; Status: F Test: NEUTROPHILS #; Value: 7.3; Range: 1.8-7.7; Units: K/mm3; Status: F Test: LYMPH #; Value: 2.6; Range: 1.5-4.5; Units: K/mm3; Status: F Test: MONO #; Value: 0.5; Range: 0.0-0.8; Units: K/mm3; Status: F Test: EOS #; Value: 0.2; Range: 0.0-0.50; Units: K/mm3; Status: F Test: BASO #; Value: 0.0; Range: 0.0-0.2; Units: K/mm3; Status: F Test: LARGE UNSTAINED CELL #; Value: 0.3; Range: 0.0-0.4; Units: K/mm3; Status: F Test: WHITE BLOOD COUNT; Value: 10.8; Range: 4.0-10.0; Abnormal: Above high normal; Units: K/mm3; Status: F Test: RED BLOOD COUNT; Value: 5.36; Range: 4.00-5.40; Units: M/mm3; Status: F Test: HEMOGLOBIN; Value: 16.0; Range: 12.0-16.0; Units: g/dl; Status: F Lab Order: MED Profile; SPEC'11/24/16 03:32 Test: GLUCOSE, FASTING; Value: 97; Range: 70-105; Units: MG/DL; Status: F Test: BLOOD UREA NITROGEN; Value: 20; Range: 7-18; Abnormal: Above high normal; Units: MG/DL; Status: F Test: CREATININE FOR GFR; Value: 0.62; Range: 0.55-1.02; Units: MG/DL; Status: F Test: GLOMERULAR FILTRATION RATE; Value: > 60.0; Range: >60; Status: F Test: SODIUM LEVEL; Value: 142; Range: 136-145; Units: MEQ/L; Status: F Test: POTASSIUM SERUM; Value: 3.9; Range: 3.5-5.1; Units: MEQ/L; Status: F Test: CHLORIDE LEVEL; Value: 105; Range: 98-107; Units: MEQ/L; Status: F Test: CARBON DIOXIDE LEVEL; Value: 27; Range: 21-32; Units: MEQ/L; Status: F Test: ANION GAP; Value: 10; Range: 8-16; Units: MEQ/L; Status: F Test: CALCIUM LEVEL; Value: 8.9; Range: 8.5-10.1; Units: MG/DL; Status: F Test Note: ; Units are mL/min/1.73 m2 Chronic Kidney Disease Staging per NKF: Stage I & II GFR >=60 Normal to Mildly Decreased Stage III GFR 30-59 Moderately Decreased Stage IV GFR 15-29 Severely Decreased Stage V GFR <15 Very Little GFR Left ESRD GFR <15 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93; Status: F Lab Order: Amylase; [facility] 11/24/16 03:32 Test: AMYLASE; Value: 55; Range: 25-115; Units: U/L; Status: F Lab Order: Lipase; [facility] 11/24/16 03:32 Test: LIPASE; Value: 122; Range: 73-393; Units: U/L; Status: F Lab Order: Urinalysis; [facility] 11/24/16 03:32 Test: APPEARANCE, URINE; Value: CLOUDY; Range: CLEAR; Abnormal: Above high normal; Status: F Test: COLOR, URINE; Value: YELLOW; Range: YELLOW; Status: F Test: PH,URINE; Value: 5.0; Range: 5.0-9.0; Units: UNITS; Status: F Test: SPECIFIC GRAVITY URINE AUTO; Value: 1.030; Range: 1.002-1.035; Status: F Test: PROTEIN, URINE AUTO; Value: NEGATIVE; Range: NEGATIVE; Units: mg/dL; Status: F Test: GLUCOSE, URINE (UA) AUTO; Value: NEGATIVE; Range: NEGATIVE; Units: mg/dL; Status: F Test: KETONE, URINE AUTO; Value: TRACE; Range: NEGATIVE; Abnormal: Above high normal; Units: mg/dL; Status: F Test: UROBILINOGEN, URINE AUTO; Value: 0.2; Range: 0.0-2.0; Units: mg/dL; Status: F Test: BILIRUBIN, URINE AUTO; Value: NEGATIVE; Range: NEGATIVE; Status: F Test: NITRITE, URINE AUTO; Value: NEGATIVE; Range: NEGATIVE; Status: F Test: LEUKOCYTE ESTERASE, URINE AUTO; Value: 2+; Range: NEGATIVE; Abnormal: Above high normal; Status: F Test: BLOOD, URINE BLOOD; Value: NEGATIVE; Range: NEGATIVE; Status: F Test: WBC, URINE AUTO; Value: 15; Range: 0-3; Abnormal: Above high normal; Units: /HPF; Status: F Test: RBC, URINE AUTO; Value: 5; Range: 0-3; Abnormal: Above high normal; Units: /HPF; Status: F Test: BACTERIA, URINE AUTO; Value: 1+; Range: NEGATIVE; Abnormal: Above high normal; Status: F Test: SQUAMOUS EPITHELIAL CELL UR AU; Value: 25; Range: 0-6; Units: /HPF; Status: F Test: MUCUS, URINE; Value: SMALL; Range: NEGATIVE; Status: F Test: HYALINE CAST, URINE AUTO; Value: 0; Range: 0-1; Units: /LPF; Status: F Lab Order: Urine Culture; SPEC'M 11/24/16 03:32 Test: URINE CULTURE; Value: <EXTERNAL COMMENT eCWMed> FULL REPORT IN LAB NOTES (eCW and Medent).; Status: F Test: URINE CULTURE; Value: URINE CULTURE RESULT; Status: F Test: URINE CULTURE; Value: NO GROWTH CLINICAL SIGNIFICANCE 2 OR MORE ORGANISMS; Status: F Radiology Order: CT ABD & PELVIS: No Contrast Test: CT ABD & PELVIS: No Contrast REASON FOR EXAMINATION: Renal colic; ; CLINICAL HISTORY: Abdominal pain.; TECHNIQUE: Multiple axial, sagittal and coronal CT images were obtained through the abdomen and pelvi; s without administration of oral or IV contrast material.; COMMENTS:; The liver is mildly enlarged without mass or defect. There is no intra or extrahepatic biliary ductal; dilatation. The spleen is normal. The gallbladder is surgically absent. The pancreas is of normal co; ntour and attenuation characteristics. There is no evidence of adrenal mass.; The kidneys are normal in size, shape and configuration. No renal or ureteral calculi are identified.; There is no hydroureter or hydronephrosis.; There is no evidence for appendicitis. There is no bowel wall thickening. No evidence for small or la; rge bowel obstruction. There is no evidence of abdominal ascites or lymphadenopathy.; There is no evidence of intrinsic or extrinsic bladder mass. There is no pelvic ascites or lymphadeno; alyce. The bowels.; Mildly thickened bladder.; Images of the lung bases show no evidence of pleural or parenchymal mass. There are no pleural effusi; ons.; The bony structures are free of lytic or blastic lesions. Multilevel degenerative changes are seen in; volving the thoracolumbar spine.; Scattered calcifications are seen involving the aorta and major branches compatible with atherosclero; sis.; IMPRESSION:; Mildly thickened bladder. Underdistention versus mild cystitis.; Fluid-filled bowels. Probably mild ileus.; No urolithiasis or hydronephrosis.; Thank you for your kind referral of this patient.; ; Outcome: 05:51 Discharge ordered by Provider. cs11 06:18 CT Study completed. cf2 06:41 Discharge Assessment: Patient awake, alert and oriented x 3. No cognitive and/or cf2 functional deficits noted. Patient verbalized understanding of disposition instructions. Patient awake and alert. Oriented to person, place and time. patient administered narcotics - yes. Pt provided with safe discharge. The following High Risk Discharge criteria are identified: None. Discharged to home ambulatory, with significant other. Condition: good Condition: stable Condition: improved. Discharge instructions given to patient, Instructed on discharge instructions, follow up and referral plans. medication usage, Demonstrated understanding of instructions, medications, Prescriptions given X 1. 06:44 Patient left the ED. cf2 Signatures: Dispatcher [employer] EDMS Mine Esquivel, Reg Reg gb Romi Rea RN RN jo3 Ford, LisaRN RN aftab1 Mary Bains RN RN sls1 Stefan Hernandez, DO cs11 Tamia Epps, Reg Reg hs2 Tamar Mcdaniel RN RN cf2 Bart Beasley, Reg Reg pm4 Chart Complete MTDD
--- NOTE | 2016-11-26 07:45 | EDDOCDS ---
Physician Documentation [facility] Name: Carol Calderon Age: 31 yrs Sex: Female : 1985 Arrival Date: 11/23/2016 Time: 22:57 Bed 15 Private MD: Lauren Disposition: 11/24/16 05:51 Discharged to Home/Self Care. Impression: Urinary tract infection, site not specified. - Condition is Stable. - Prescriptions for Cipro 500 mg Oral Tablet - take 1 tablet by ORAL route every 12 hours; 10 tablet. - Medication Reconciliation, Local Pharmacy Hours form. - Follow up: Lauren; When: Call to arrange an appointment; Reason: Recheck today's complaints. - Problem is new. - Symptoms have improved. Historical: - Allergies: Amoxicillin; Azithromycin; - Home Meds: 1. Ranitidine Oral 2. Vitamin D3 oral oral 3. nexplanon placed this morning 4. 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 No barriers to communication noted, The patient speaks fluent Swedish, Speaks appropriately for age. - Family history: Not pertinent. - : The pt / caregiver states he / she is not on anticoagulants. Home medication list is obtained from the patient. - Exposure Risk Screening:: None identified. 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 cs11 02:57 NS 0.9% 1000 ml IV at bolus once ordered. cs11 02:57 morphine 4 mg IVP once ordered. cs11 02:57 [facility] Payment Agreement was scanned into [employer] and attached to record. hs2 02:57 Financial registration complete. hs2 02:58 CBC with Diff Ordered. EDMS 02:58 MED Profile Ordered. EDMS 02:58 Liver Profile Ordered. EDMS 02:58 Amylase Ordered. EDMS 02:58 Lipase Ordered. EDMS 02:58 Urinalysis Ordered. EDMS 02:58 Urine Culture Ordered. EDMS 04:01 CBC with Diff Reviewed. cs11 04:01 Urinalysis Reviewed. cs11 04:03 Ciprofloxacin 400 mg IVPB at 200 mL/hr once over 60 mins ordered. cs11 04:04 CT ABD & PELVIS: No Contrast Ordered. EDMS 04:57 MED Profile Reviewed. cs11 04:57 Liver Profile Reviewed. cs11 04:57 Amylase Reviewed. cs11 04:57 Lipase Reviewed. cs11 05:41 ketorolac 30 mg IVP once ordered. cs11 05:45 CT ABD & PELVIS: No Contrast Reviewed. cs11 10:24 T-Sheet-- Draft Copy was scanned into [employer] and attached to record. gb 11/25 08:54 Radiology Report was scanned into [employer] and attached to record. gb Administered Medications: Discontinued: NS 0.9% 1000 ml IV at bolus once Discontinued: Ciprofloxacin 400 mg IVPB at 200 mL/hr once over 60 mins 11/24 03:10 Drug: NS 0.9% 1000 ml [sodium chloride 0.9 % intravenous solution] Route: IV; Rate: cf2 bolus; Site: left antecubital; 03:10 Drug: morphine 4 mg [morphine 4 mg/mL intravenous cartridge (1 mL)] Route: IVP; Site: cf2 left antecubital; 05:42 Follow up: Response: Pain is decreased cf2 04:20 Drug: Ciprofloxacin 400 mg [ciprofloxacin 400 mg/200 mL in 5 % dextrose intravenous cf2 piggyback] Route: IVPB; Rate: 200 mL/hr; Infused Over: 60 mins; Site: left antecubital; 06:43 Follow up: Response: No significant change. cf2 05:45 Drug: ketorolac 30 mg [ketorolac 30 mg/mL (1 mL) injection solution (1 mL)] Route: IVP; cf2 Site: left antecubital; 06:17 Follow up: Response: No significant change. cf2 06:43 Follow up: Response: Pain is decreased cf2 Signatures: Dispatcher [employer] Mine Carranza, Reg Reg gb Romi Rea,RN RN jo3 Stefan Hernandez, DO cs11 Tamia Epps, Reg Reg hs2 Tamar Mcdaniel RN RN cf2 The chart was reviewed and I authenticate all verbal orders and agree with the evaluation and treatment provided.Attachments: 02:57 [facility] Payment Agreement hs2 10:24 T-Sheet-- Draft Copy gb Chart Complete MTDD
== END 2016-11-24 06:44 | disposition home or self-care (01) ==
LOC: M ED 22:57
DX: N39.0 Urinary tract infection, site not specified (principal); K21.9 Gastro-esophageal reflux disease without esophagitis; Z87.891 Personal history of nicotine dependence; Z79.899 Other long term (current) drug therapy; Z79.3 Long term (current) use of hormonal contraceptives; Z88.0 Allergy status to penicillin; Z88.1 Allergy status to other antibiotic agents
CPT/HCPCS: 36415; 74176; 80048; 80076; 81001; 82150; 83690; 85025; 87086; 96374; 96375; 99284; J0744; J1885; J2405

== ENCOUNTER → 2016-12-26 | Outpatient (CLI) | payer OTHER ==
[~2016-12-26] MED LIST changes: +E-Z PAQUE 60% w/v SUSP 355ML BOTTLE As Ordered ONE; +E-Z-GAS II EFFERVESCENT PACKET (SODIUM BICARB./CITRIC ACID/SIMETHICONE) As Ordered ONE; +E-Z-HD 98% w/w 340GM SUSP BTL As Ordered ONE
--- NOTE | 2016-12-26 16:43 | REP ---
UPPER GI, AIR CONTRAST: The procedure was performed under the direct supervision of Dr. Allen. The images were reviewed with Dr. Allen. The warehouse processor film shows no organomegaly or pathological masses. The intestinal gas pattern is nonspecific. Liquid barium and gas-producing granules were given in the erect position as well as liquid barium in the prone oblique position in order to perform a double contrast upper GI examination. The oral and pharyngeal stages of deglutition are unremarkable. Esophageal transport is prompt and efficient and there is no esophagitis, stricture, mucosal ring or hiatal hernia. Gastroesophageal reflux is not demonstrated on this examination. The stomach rebolledo are normally outlined. The rugal folds are smooth and regular. There is no gastritis, neoplasm or ulcer disease. The duodenal rebolled[place] are normally outlined. The mucosal folds are smooth and regular. There is no duodenitis, pancreatitis, peptic ulcer disease or neoplasm. The visualized portion of the proximal small bowel appears normal in course and caliber. IMPRESSION: Essentially unremarkable double contrast upper GI examination. 3 minutes and 9 seconds of fluoroscopy time was utilized for this procedure. Reviewed by JACQUELINE Dean 12/27/2016 04:12 PEdited and Signed by Shaheed Allen MD 12/28/2016 12:24 P
== END ==
LOC: M RAD 08:39
PROVIDERS: ATTEND Physician Assistant Medical
DX: R10.13 Epigastric pain (principal); R11.2 Nausea with vomiting, unspecified

== ENCOUNTER → 2016-12-27 | Outpatient (REF) | payer OTHER ==
[~2016-12-27] MED LIST changes: -E-Z PAQUE 60% w/v SUSP 355ML BOTTLE As Ordered ONE; -E-Z-GAS II EFFERVESCENT PACKET (SODIUM BICARB./CITRIC ACID/SIMETHICONE) As Ordered ONE; -E-Z-HD 98% w/w 340GM SUSP BTL As Ordered ONE
== END ==
LOC: M LAB REF 17:12
PROVIDERS: ATTEND Family Medicine
DX: R87.610 Atypical squamous cells of undetermined significance on cytologic smear of cervix (ASC-US) (principal)

== ENCOUNTER → 2017-01-15 | Outpatient (REF) | payer OTHER | LOC: M LAB REF 10:26 | PROVIDERS: ATTEND Physician Assistant Medical | DX: R19.7 Diarrhea, unspecified (principal) ==

== ENCOUNTER → 2017-04-04 | Outpatient (REF) | payer OTHER | LOC: M LAB REF 08:50 | PROVIDERS: ATTEND Specialist | DX: R87.612 Low grade squamous intraepithelial lesion on cytologic smear of cervix (LGSIL) (principal); N72 Inflammatory disease of cervix uteri ==

== ENCOUNTER → 2017-07-06 | Outpatient (CLI) | payer OTHER ==
[2017-07-06 13:14] LABS: BASO % 0.3 % (0.0-1.0); EOS # 0.2 10^3/uL (0.0-0.50); EOS % 2.1 % (0.0-3.0); IMMATURE GRANULOCYTE % 0.3 % (0-0); LYMPH # 3.3 10^3/uL (1.5-4.5); LYMPH % 34.1 % (24.0-44.0); MEAN CORPUSCULAR HEMOGLOBIN 30.5 pg (27.0-33.0); MEAN CORPUSCULAR HGB CONC 33.6 g/dl (32.0-36.5); MEAN CORPUSCULAR VOLUME 90.7 fl (80.0-96.0); MONO # 0.6 10^3/uL (0.0-0.8); MONO % 6.4 % (0.0-5.0); NEUTROPHILS # 5.4 10^3/uL (1.8-7.7); NEUTROPHILS % 56.8 % (36.0-66.0); PLATELET COUNT, AUTOMATED 343 10^3/uL (150-450); RED CELL DISTRIBUTION WIDTH 12.9 % (11.5-14.5); WHITE BLOOD COUNT 9.6 10^3/uL (4.0-10.0)
[2017-07-06 13:51] LABS: ANION GAP 7 MEQ/L (8-16); BLOOD UREA NITROGEN 12 MG/DL (7-18); CALCIUM LEVEL 9.1 MG/DL (8.5-10.1); CARBON DIOXIDE LEVEL 24 MEQ/L (21-32); CHLORIDE LEVEL 107 MEQ/L (98-107); CREATININE FOR GFR 0.65 MG/DL (0.55-1.02); GLOMERULAR FILTRATION RATE > 60.0 (>60); GLUCOSE, FASTING 88 MG/DL (70-105); POTASSIUM SERUM 4.1 MEQ/L (3.5-5.1); SODIUM LEVEL 138 MEQ/L (136-145)
== END ==
LOC: M SMT 10:21
PROVIDERS: ATTEND Family Medicine
DX: R53.83 Other fatigue (principal); R55 Syncope and collapse; Z83.3 Family history of diabetes mellitus

== ENCOUNTER 2017-10-30 11:54 | Day surgery (SDC) | payer OTHER ==
[2017-10-30] MEDS: LR 1,000 ML IV (12:15)
[2017-10-30 12:36] LABS: CONTROL LINE UCG INT CTR LINE PRESENT; URINE PREG TEST NEGATIVE (NEGATIVE)
[2017-10-30] MEDS ORDERED: MIDAZOLAM INJ 2 MG/2 ML VIAL (J2250) As Ordered ×2 (13:00→14:06)
[2017-10-30] MEDS ORDERED: fentaNYL 100 MCG/2 ML INJECTION (J3010) As Ordered (13:00)
[2017-10-30] MEDS: LIDOCAINE 1% SDV INJ 30 ML VIAL As Ordered (13:19)
[2017-10-30] MEDS: VANCOMYCIN HCL 1,000 MG, VIAL MATE ADAPTER 1 EACH in D5W 250 ML IV (13:36)
[2017-10-30] MEDS ORDERED: dexameTHASONE 4 MG/ML 1ML VIAL (J1100) As Ordered (14:24)
[2017-10-30] MEDS ORDERED: ONDANSETRON 4MG/2ML VIAL (J2405) As Ordered (14:24)
[2017-10-30] MEDS ORDERED: KETOROLAC 60 MG/2 ML VIAL (J1885) As Ordered (14:24)
[2017-10-30] MEDS ORDERED: LIDOCAINE 2% INJ 100 MG/5 ML SDV (FOR ANES.) As Ordered (14:24)
[2017-10-30] MEDS ORDERED: PROPOFOL 200 MG/20 ML VIAL As Ordered ×2 (14:24→14:31)
== END 2017-10-30 15:55 | disposition home or self-care (01) ==
LOC: M SDC 11:54
DX: R55 Syncope and collapse (principal); E66.9 Obesity, unspecified; G40.909 Epilepsy, unspecified, not intractable, without status epilepticus; K21.9 Gastro-esophageal reflux disease without esophagitis; Z88.1 Allergy status to other antibiotic agents; Z79.899 Other long term (current) drug therapy
CPT/HCPCS: 33282

== ENCOUNTER → 2017-12-03 | Outpatient (REF) | payer OTHER ==
[2017-12-06 08:41] LABS: HPV HYBRID CAPTURE II Negative (Negative)
== END ==
LOC: M LAB REF 13:44
DX: R87.612 Low grade squamous intraepithelial lesion on cytologic smear of cervix (LGSIL) (principal)

== ENCOUNTER → 2018-01-02 | Outpatient (CLI) | payer OTHER ==
[2018-01-02 13:35] LABS: BASO % 0.4 % (0.0-1.0); EOS # 0.3 10^3/uL (0.0-0.50); EOS % 3.6 % (0.0-3.0); HEMATOCRIT 44.9 % (36.0-47.0); HEMOGLOBIN 14.8 g/dl (12.0-16.0); IMMATURE GRANULOCYTE % 0.4 % (0-3.0); LYMPH # 3.1 10^3/uL (1.5-4.5); LYMPH % 37.6 % (24.0-44.0); MEAN CORPUSCULAR HEMOGLOBIN 30.3 pg (27.0-33.0); MONO # 0.5 10^3/uL (0.0-0.8); MONO % 6.6 % (0.0-5.0); NEUTROPHILS # 4.2 10^3/uL (1.8-7.7); NEUTROPHILS % 51.4 % (36.0-66.0); PLATELET COUNT, AUTOMATED 355 10^3/uL (150-450); RED BLOOD COUNT 4.88 10^6/uL (4.00-5.40); RED CELL DISTRIBUTION WIDTH 12.5 % (11.5-14.5); WHITE BLOOD COUNT 8.2 10^3/uL (4.0-10.0)
[2018-01-02 14:20] LABS: TOTAL 25(OH) VITAMIN D 17.8 NG/ML (30.0-100.0)
[2018-01-02 14:25] LABS: ALBUMIN/GLOBULIN RATIO 1.03 (1.00-1.93); ALKALINE PHOSPHATASE 107 U/L (45-117); ALT/SGPT 33 U/L (12-78); ANION GAP 6 MEQ/L (8-16); AST/SGOT 21 U/L (7-37); BILIRUBIN,TOTAL 0.4 MG/DL (0.2-1.0); BLOOD UREA NITROGEN 9 MG/DL (7-18); CALCIUM LEVEL 8.9 MG/DL (8.5-10.1); CARBON DIOXIDE LEVEL 28 MEQ/L (21-32); CHLORIDE LEVEL 106 MEQ/L (98-107); CREATININE FOR GFR 0.61 MG/DL (0.55-1.30); FREE T4 0.88 NG/DL (0.76-1.46); GLOMERULAR FILTRATION RATE > 60.0 (>60); GLUCOSE, FASTING 82 MG/DL (70-100); POTASSIUM SERUM 4.5 MEQ/L (3.5-5.1); SODIUM LEVEL 140 MEQ/L (136-145); TOTAL PROTEIN 7.9 GM/DL (6.4-8.2)
== END ==
LOC: M SMT 09:41
DX: E55.9 Vitamin D deficiency, unspecified (principal); Z13.29 Encounter for screening for other suspected endocrine disorder; Z13.0 Encounter for screening for diseases of the blood and blood-forming organs and certain disorders involving the immune mechanism